=== PATIENT | male | born 1930 | race Caucasian/White ===

== ENCOUNTER 2016-11-01 19:49 | Inpatient (IN) | payer BC, OTHER ==
[~2016-11-01] VITALS: Ht 177.8 cm; Wt 67.4 kg
[~2016-11-01 19:49] MED LIST changes: -LUTE10TA PO
[2016-11-01 22:35] LABS: HEMATOCRIT 25.7 % (42-52); MEAN CELL VOLUME 84.8 fL (80-100); MEAN CORPUSCULAR HEMOGLOBIN 28.1 pg (25-34); MEAN CORPUSCULAR HGB CONC 33.1 g/dl (32-36); MEAN PLATELET VOLUME 9.3 fL (7.4-10.4); PLATELET COUNT 337 K/uL (130-400); RED BLOOD COUNT 3.03 M/uL (4.7-6.1); WHITE BLOOD COUNT 8.36 K/uL (4.8-10.8)
[2016-11-01 22:45] LABS: INR 1.2 (0.9-1.1); PARTIAL THROMBOPLASTIN RATIO 1.3; PROTHROMBIN TIME (PATIENT) 13.2 SECONDS (9.0-12.0)
[2016-11-01 22:51] LABS: ALT/SGPT 13 U/L (12-78); BLOOD UREA NITROGEN 21 mg/dl (7-18); BUN/CREATININE RATIO 17.5 (10-20); CALCIUM 9.4 mg/dl (8.5-10.1); CARBON DIOXIDE 28 mmol/L (21-32); CHLORIDE 102 mmol/L (98-107); GLUCOSE 106 mg/dl (70-99); MAGNESIUM 2.3 mg/dl (1.8-2.4); POTASSIUM 4.1 mmol/L (3.5-5.1); SODIUM 137 mmol/L (136-145)
[2016-11-01] MEDS ORDERED: LUTE10TA PO (22:54)
[2016-11-01 23:02] LABS: ALB/GLOB RATIO 0.4 (0.9-2); ALKALINE PHOSPHATASE 56 U/L (45-117); AST/SGOT 15 U/L (15-37); CKMB/CK RATIO 7.8 (0-3.0)
[2016-11-01 23:14] LABS: URINE APPEARANCE CLEAR (CLEAR); URINE BILIRUBIN NEG (NEG); URINE COLOR YELLOW; URINE NITRITE NEG (NEG); URINE SPECIFIC GRAVITY 1.022 (1.000-1.030); UROBILINOGEN NEG (NEG); ZZUR CULT IF INDIC CLEAN CATCH NO
[2016-11-01 23:20] LABS: BASO ABS # 0.15 K/uL (0-0.2); BASOPHIL % 1.8 % (0-2); COMPLETE YES; EOSINOPHIL % 1.8 %; LYMPH ABS # 3.44 K/uL (1.2-3.4); LYMPHOCYTE % 41.2 %; META ABS # 0.15 K/uL (0-0); METAMYELOCYTE % 1.8 %
[2016-11-01 23:23] LABS: MANUAL MICROSCOPIC REQUIRED? NO; REVIEW REQ? NO
--- NOTE | 2016-11-02 01:06 | EMERGENCY ROOM VISIT NOTE ---
ED Visit Note First contact with patient: 22:10 Patient was seen by our PA/CAN TESTER. I was involved in the patient's care and did evaluate the patient myself. I was involved in the care throughout the ER stay. The patient presents with fatigue, he is anemic. I suspect his counts will drop further with hydration. Given his findings, admission/observation is warranted.
[2016-11-02] MEDS ORDERED: SODIUM CHLORIDE 0.9% 500ML 500 ML IV STA (01:19)
[2016-11-02] MEDS ORDERED: OPTIRAY 320 IV PRN (01:30)
[2016-11-02] MEDS ORDERED: ONDANSETRON INJ 2 MG/ML 2 ML VIAL IV PRN (01:45)
[2016-11-02] MEDS ORDERED: ZOLPIDEM TARTRATE 5 MG TAB PO PRN (01:45)
[2016-11-02] MEDS ORDERED: MAGNESIUM HYDROXIDE SUSP 30 ML UDC PO PRN (01:45)
[2016-11-02] MEDS ORDERED: POLYETHYLENE (MIRALAX) 17 GM PACK PO PRN (01:45)
[2016-11-02] MEDS ORDERED: ACETAMINOPHEN 325 MG TAB PO PRN (01:45)
[2016-11-02 02:12] VITALS: O2SAT 98
[2016-11-02 02:40] VITALS: BP 126/65; PULSE 62; TEMP 36.9; O2SAT 93
[2016-11-02 02:50] VITALS: Ht 177.8 cm; Wt 67.4 kg
[2016-11-02] MEDS: NSS + 20MEQ KCL 1000ML 1,000 ML IV SCH ×3 (04:06→23:24)
--- NOTE | 2016-11-02 06:39 | History and Physical ---
History & Physical Date & Time of Service: Nov 02, 2016 at 06:31 Chief Complaint: Recent Unexplained Wt Loss, Symptomatic Anemia Primary Care Physician: Yahir Watts D.O.Int.Med. History of Present Illness Source: patient The patient is an 85-year-old male who presents to the emergency department with complaint of persistent weakness, fatigue, increased need for sleep and a 10 pound weight loss over the past month. He has known history of prostate cancer and is status post prostatectomy. He has not had any recent travel or sick exposures. His reports that he has had a decreased appetite over the past month. Social History Smoking Status: Unknown if Ever Smoked Smokeless Tobacco Use: No Alcohol Use: none Drug Use: none Marital Status: Housing status: lives with family Occupational Status: retired Immunizations History of Tetanus Vaccine?: No History of Pneumococcal: No History of Hepatitis B Vaccine: No Multi-Drug Resistant Organisms History of MDRO: No Allergies Coded Allergies: Nut Tree (Verified Allergy, Mild, "DIDN'T FEEL WELL", 11/01/16) Sulfa Antibiotics (Verified Allergy, Mild, "DIDN'T FEEL WELL", 11/01/16) Home Medications Scheduled Lutein (Lutein), 1 DOSE PO DAILY Review of Systems The patient denies chest pain, palpitations, shortness of breath, cough, lower extremity swelling, vision change, hearing change, sore throat, fevers, chills, sweats, nausea, vomiting, abdominal pain, pelvic pain, blood in urine or stool, dysuria, urinary frequency or urgency, headache, memory loss, rash, abnormal bruising or bleeding, imbalance, focal weakness, numbness or tingling in arms or legs, arthralgias or myalgias, back or neck pain, night sweats, or allergy symptoms. The review of systems is otherwise negative other than for that already noted above, and at least 10 systems have been reviewed. Physical Exam Vital Signs Date Time Temp Pulse Resp B/P Pulse Ox O2 Delivery O2 Flow Rate FiO2 11/02/16 02:50 Room Air 11/02/16 02:50 Room Air 11/02/16 02:40 36.9 62 17 126/65 93 Room Air 11/02/16 02:12 78 18 135/63 98 11/02/16 01:47 78 18 135/63 98 Room Air 11/02/16 00:39 80 24 111/52 96 Room Air 11/01/16 23:03 77 19 125/60 97 Room Air 11/01/16 22:58 81 11/01/16 22:51 77 134/63 81 133/61 80 141/60 11/01/16 22:49 95 Room Air 11/01/16 20:01 37.2 95 18 134/68 96 Room Air The patient is awake, well-developed and adequately nourished, alert and oriented 3, normocephalic and atraumatic, lying in bed and in no acute distress. HEENT--PERRL, EOMI, mucous membranes and oropharynx dry. Neck--supple, no JVD or bruits, thyroid normal, trachea midline, no adenopathy. Heart--normal S1 and S2, no extra beats, no murmurs, rubs or gallops. Lungs--clear bilaterally with good air movement, no respiratory distress, no accessory muscle use. Abdomen--normal bowel sounds and soft, nontender and nondistended, no hernias or masses, no organomegaly. Extremities--no cyanosis, clubbing or edema. There are good distal pulses b/l. Dermatologic--normal skin turgor, normal color, warm and dry, no abnormal lymph nodes, no rash. Neurologic--cranial nerves II through XII grossly intact, motor and sensory examination normal. Rheumatologic--normal range of motion, nontender, muscles and joints. Psychiatric--normal affect. Diagnostics Laboratory Results Results Past 24 Hours Test 11/01/16 22:11 11/01/16 22:44 11/01/16 22:55 Range/Units White Blood Count 8.36 4.8-10.8 K/uL Red Blood Count 3.03 4.7-6.1 M/uL Hemoglobin 8.5 14.0-18.0 g/dL Hematocrit 25.7 42-52 % Mean Corpuscular Volume 84.8 80-100 fL Mean Corpuscular Hemoglobin 28.1 25-34 pg Mean Corpuscular Hemoglobin Concent 33.1 32-36 g/dl Platelet Count 337 130-400 K/uL Mean Platelet Volume 9.3 7.4-10.4 fL RDW Standard Deviation 50.0 36.4-46.3 fL RDW Coefficient of Variation 16.2 11.5-14.5 % Neutrophils % (Manual) 42.0 % Lymphocytes % (Manual) 41.2 % Monocytes % (Manual) 11.4 % Eosinophils % (Manual) 1.8 % Basophils % (Manual) 1.8 0-2 % Metamyelocytes % 1.8 % Neutrophils # (Manual) 3.51 1.4-6.5 K/uL Total Absolute Neutrophils 3.51 1.4-6.5 K/uL Lymphocytes # (Manual) 3.44 1.2-3.4 K/uL Total Absolute Lymphocytes 3.44 1.2-3.4 K/uL Monocytes # (Manual) 0.95 0.11-0.59 K/uL Eosinophils # (Manual) 0.15 0-0.5 K/uL Basophils # (Manual) 0.15 0-0.2 K/uL Metamyelocytes # 0.15 0-0 K/uL Red Blood Cell Morphology Unremarkable Prothrombin Time 13.2 9.0-12.0 SECONDS Prothromb Time International Ratio 1.2 0.9-1.1 Activated Partial Thromboplast Time 33.4 21.0-31.0 SECONDS Partial Thromboplastin Ratio 1.3 Sodium Level 137 136-145 mmol/L Potassium Level 4.1 3.5-5.1 mmol/L Chloride Level 102 98-107 mmol/L Carbon Dioxide Level 28 21-32 mmol/L Anion Gap 7.0 3-11 mmol/L Blood Urea Nitrogen 21 7-18 mg/dl Creatinine 1.20 0.60-1.40 mg/dl Est Creatinine Clear Calc Drug Dose 44.7 ml/min Estimated GFR () 64.0 Estimated GFR (Non- 55.2 BUN/Creatinine Ratio 17.5 10-20 Random Glucose 106 70-99 mg/dl Calcium Level 9.4 8.5-10.1 mg/dl Magnesium Level 2.3 1.8-2.4 mg/dl Total Bilirubin 0.6 0.2-1 mg/dl Aspartate Amino Transf (AST/SGOT) 15 15-37 U/L Alanine Aminotransferase (ALT/SGPT) 13 12-78 U/L Alkaline Phosphatase 56 45-117 U/L Total Creatine Kinase 18 39-308 U/L Creatine Kinase MB 1.4 0.5-3.6 ng/ml Creatine Kinase MB Ratio 7.8 0-3.0 Troponin I < 0.015 0-0.045 ng/ml Total Protein 9.3 6.4-8.2 gm/dl Albumin 2.6 3.4-5.0 gm/dl Globulin 6.7 2.5-4.0 gm/dl Albumin/Globulin Ratio 0.4 0.9-2 Lipase 181 73-393 U/L Thyroid Stimulating Hormone (TSH) 5.060 0.300-4.500 uIu/ml Bedside Lactic Acid Venous 0.84 0.90-1.70 mmol/L Urine Color YELLOW Urine Appearance CLEAR CLEAR Urine pH 7.0 4.5-7.5 Urine Specific [place] 1.022 1.000-1.030 Urine Protein 2+ NEG Urine Glucose (UA) NEG NEG Urine Ketones NEG NEG Urine Occult Blood NEG NEG Urine Nitrite NEG NEG Urine Bilirubin NEG NEG Urine Urobilinogen NEG NEG Urine Leukocyte Esterase NEG NEG Urine WBC (Auto) 1-5 0-5 /hpf Urine RBC (Auto) 0-4 0-4 /hpf Urine Hyaline Casts (Auto) 1-5 0-5 /lpf Urine Epithelial Cells (Auto) 10-20 0-5 /lpf Urine Bacteria (Auto) NEG NEG Impression Assessment and Plan Generalized fatigue/ weakness/10 pound weight loss/anemia/lymphocytosis--the patient had a CT of the chest and abdomen pelvis, with borderline mediastinal lymph nodes and retroperitoneal lymph nodes. He has a known history of prostate cancer. We'll send off a peripheral smear for pathology review. We' ll consult his digital account coordinator. There are no bone lesions suggestive of metastatic prostate cancer. Would be concerned about the possibility of lymphoma. CAD/status post CABG/status post AVR--on no medications at this time. We will order an echocardiogram, and included in differential would be SBE. Anemia--Hemoccult test stools, check a reticulocyte count and other appropriate labs. If there is blood in stool, will need a GI consult. Level of Care Med/Surg Advanced Directives Existing Advance Directive: No Existing Living Will: Yes Existing Power of Cook Pickled Meat: Yes Resuscitation Status FULL RESUSCITATION VTE Prophylaxis VTE Risk Assessment Done? Y/N: Yes Risk Level: Low Given or contraindicated: SCD's
--- NOTE | 2016-11-02 07:13 | DIAGNOSTIC IMAGING REPORT ---
ULTRASOUND BILATERAL LOWER EXTREMITY VENOUS CLINICAL HISTORY: Bilateral leg pain and swelling. COMPARISON STUDY: No priors. TECHNIQUE: Real-time, grayscale, and color Doppler sonography of the deep veins of the right and left lower extremity was performed from the inguinal crease to the calf. Compression and augmentation were utilized. FINDINGS: There is no sonographic evidence of deep venous thrombosis identified in the right or left lower extremity. The common femoral, superficial femoral, and popliteal veins are patent and normally compressible bilaterally. The greater saphenous vein and the profunda femoris vein at the junction with the common femoral vein are clear in both legs. The visualized calf veins are patent bilaterally. Prominent inguinal lymph nodes are incidentally noted and likely reactive. IMPRESSION: There is no sonographic evidence of deep venous thrombosis identified in the right or left lower extremity. Electronically signed by: Aly Kim M.D. 11/02/2016 7:12 AM Dictated Date/Time: 11/02/2016 7:11 AM
[2016-11-02 07:14] VITALS: BP 127/56; PULSE 67; TEMP 36.7; O2SAT 98
--- NOTE | 2016-11-02 08:02 | DIAGNOSTIC IMAGING REPORT ---
CT ABD/PELVIS IV CONTRAST ONLY CLINICAL HISTORY: Anemia. Possible abdominal mass. COMPARISON STUDY: None. TECHNIQUE: Following the IV administration of 90 mL of Optiray-320, CT scan of the abdomen and pelvis was performed from the lung bases to the proximal femurs. Images are reviewed in the axial, sagittal, and coronal planes. IV contrast was administered without complication. CT DOSE: FINDINGS: Lower chest: There are bibasal atelectatic changes. Liver: There are 2 subcentimeter hepatic hypodensities, likely representing small cysts or biliary hamartomas. Gallbladder: Unremarkable. Spleen: Normal in size and attenuation. Pancreas: Unremarkable. Adrenal glands: Unremarkable. Kidneys: There is symmetric renal cortical enhancement. The kidneys are normal in size without hydronephrosis. Bowel: There are no transition zones to indicate bowel obstruction. There is colonic diverticulosis. There are no acute peridiverticular inflammatory changes. There are no findings to indicate acute appendicitis. Peritoneum: There is no intraperitoneal free air or abdominal ascites. There are fat-containing inguinal hernias. Vasculature: The abdominal aorta is normal in course and caliber. Adenopathy: There are borderline enlarged retroperitoneal para-aortic, and iliac lymph nodes. Pelvic viscera: The patient appears be status post a prostatectomy with lymph node dissection. Skeletal structures: No destructive osseous lesions are seen. IMPRESSION: 1. No evidence of bowel obstruction. No evidence of free air 2. No evidence of acute diverticulitis. No evidence of acute appendicitis. 3. Borderline enlarged retroperitoneal lymph nodes. Electronically signed by: Zan Padilla M.D. 11/02/2016 8:01 AM Dictated Date/Time: 11/02/2016 7:42 AM
--- NOTE | 2016-11-02 08:05 | DIAGNOSTIC IMAGING REPORT ---
CT SCAN OF THE CHEST WITH IV CONTRAST CLINICAL HISTORY: Anemia. COMPARISON STUDY: Chest x-ray dated 11/01/2016. TECHNIQUE: Following the IV administration of 90 cc of Optiray 320, CT scan of the thorax was performed from the thoracic inlet to the upper abdomen. Images are reviewed in the axial, sagittal, and coronal planes. IV contrast was administered without complication. CT DOSE: 479.98 mGy.cm FINDINGS: Thyroid: Imaged portions of the thyroid gland are normal in size and attenuation. Thoracic aorta: There is atherosclerotic calcification of the thoracic aorta, which is normal in caliber and demonstrates standard 3-vessel arch anatomy. No dissection is seen. Pulmonary vasculature: The pulmonary trunk is normal in caliber. There are no filling defects identified in the central pulmonary vessels to indicate pulmonary embolus. Note that this examination was not protocoled for evaluation of the pulmonary arteries. Heart: The patient is status post midline sternotomy and there is evidence of aortic valve surgery. The coronary arteries are densely calcified. The heart is mildly enlarged and configuration, and without pericardial effusion. The pulmonary trunk is normal in caliber. Lungs and pleural spaces: Evaluation of the lung parenchyma is modestly degraded by motion artifact. There is no airspace consolidation or pleural effusion. Dependent atelectasis is observed. Scattered calcified granulomas are identified. There is mild apical scarring. No concerning pulmonary lesion is seen. The trachea and central airways are clear. Mediastinum: There are scattered subcentimeter mediastinal lymph nodes. These are not pathologically enlarged by size criteria. Darcie: Clear. Axillae: There is no axillary lymphadenopathy. Upper abdomen: There is a small hiatal hernia. Images renal parenchyma demonstrates cortical atrophy. See report of abdominal CT performed concurrently for detailed intra-abdominal findings. Skeletal structures: The skeletal structures are osteopenic. Degenerative change and hyperkyphosis are noted in the thoracic spine. No lytic or blastic bony lesions are seen. IMPRESSION: 1. There is no airspace consolidation or pleural effusion. 2. Mild cardiac enlargement with evidence of previous aortic valve surgery. Electronically signed by: Aly Kim M.D. 11/02/2016 8:04 AM Dictated Date/Time: 11/02/2016 7:57 AM
[2016-11-02 08:16] LABS: FERRITIN 200.6 ng/ml (8.0-388.0)
--- NOTE | 2016-11-02 13:56 | ECHOCARDIOGRAM REPORT ---
*NOTICE TO RECEIVING LIBERTARIAN AGENCY This information is strictly Confidential and protected under [place] law. [place] law prohibits you from making any further disclosure of this information unless further disclosure is expressly permitted by the written consent of the person to whom it pertains or is authorized by law. A general authorization for the release of medical or other information is not sufficient for this purpose. Hospital accepts no responsibility if the information is made available to any other person, INCLUDING THE PATIENT. Interpretation Summary * Name: TATI BARRIENTOS Study Date: 11/02/2016 11:22 AM BP: 127/56 mmHg * Patient Location: [facility]\S\[id number]\1 HR: 85 * : 1930 (M/d/yyyy) Gender: Male Height: 70 in * Age: 85 yrs Ethnicity: [place] Weight: 148 lb * Ordering Physician: Avel Cabrera * Referring Physician: Yahir Watts D.O.Int.Med. * Performed By: Lenka Perez RCS * * Reason For Study: WEIGHT LOSS / ? SBE / AVR * BSA: 1.8 m2 * -- Conclusions -- * The basal septum is thickened and angulated consistent with sigmoid septum. * There is moderate asymmetric left ventricular hypertrophy. * Left ventricular systolic function is normal. * There is a bioprosthetic aortic valve. * The gradient is normal for this prosthetic aortic valve. * There is no aortic valvular vegetation. * Right ventricular systolic pressure is elevated at 30-40mmHg. * Moderate aortic root dilatation. * Grade I diastolic dysfunction, (abnormal relaxation pattern). Procedure Details * A complete two-dimensional transthoracic echocardiogram was performed (2D, M-mode, Doppler and color flow Doppler). Left Ventricle * The left ventricle is normal in size. * The basal septum is thickened and angulated consistent with sigmoid septum. * There is moderate asymmetric left ventricular hypertrophy. * Ejection Fraction = 55-60%. * Left ventricular systolic function is normal. * Grade I diastolic dysfunction, (abnormal relaxation pattern). * Septal motion is consistent with conduction abnormality. Right Ventricle * The right ventricle is normal in size and function. Atria * The left atrial size is normal. * Right atrial size is normal. Mitral Valve * The mitral valve is grossly normal. * Significant mitral regurgitation is absent. Tricuspid Valve * The tricuspid valve anatomy is normal. * There is trace tricuspid regurgitation. * Right ventricular systolic pressure is elevated at 30-40mmHg. Aortic Valve * There is no aortic valvular vegetation. * There is a bioprosthetic aortic valve. * The gradient is normal for this prosthetic aortic valve. Great Vessels * Moderate aortic root dilatation. Pericardium/Pleural * There is no pericardial effusion. MMode 2D Measurements and Calculations IVSd 1.8 cm IVSs 2.3 cm LVIDd 4.3 cm LVIDs 3.0 cm LVPWd 1.7 cm LVPWs 2.0 cm IVS/LVPW 1.1 FS 29.3 % EDV(Teich) 81.4 ml ESV(Teich) 35.4 ml EF(Teich) 56.5 % EDV(cubed) 77.5 ml ESV(cubed) 27.4 ml EF(cubed) 64.7 % % IVS thick 23.6 % % LVPW thick 18.3 % LV mass(C)d 324.6 grams LV mass(C)dI 176.7 grams/m\S\2 LV mass(C)s 294.1 grams LV mass(C)sI 160.1 grams/m\S\2 SV(Teich) 46.0 ml SI(Teich) 25.1 ml/m\S\2 SV(cubed) 50.1 ml SI(cubed) 27.3 ml/m\S\2 Ao root diam 4.5 cm Ao root area 16.0 cm\S\2 LA dimension 3.6 cm LA/Ao 0.79 LVOT diam 2.0 cm LVOT area 3.2 cm\S\2 LVAd ap4 34.8 cm\S\2 LVLd ap4 8.3 cm EDV(MOD-sp4) 120.9 ml EDV(sp4-el) 124.3 ml LVAs ap4 21.0 cm\S\2 LVLs ap4 7.1 cm ESV(MOD-sp4) 54.6 ml ESV(sp4-el) 52.3 ml EF(MOD-sp4) 54.8 % EF(sp4-el) 57.9 % LVAd ap2 39.8 cm\S\2 LVLd ap2 8.7 cm EDV(MOD-sp2) 152.1 ml EDV(sp2-el) 154.2 ml LVAs ap2 24.0 cm\S\2 LVLs ap2 7.5 cm ESV(MOD-sp2) 62.7 ml ESV(sp2-el) 65.0 ml EF(MOD-sp2) 58.8 % EF(sp2-el) 57.8 % LVLd %diff 4.8 % EDV(MOD-bp) 137.9 ml LVLs %diff 5.1 % ESV(MOD-bp) 58.7 ml EF(MOD-bp) 57.4 % SV(MOD-sp4) 66.2 ml SI(MOD-sp4) 36.1 ml/m\S\2 SV(MOD-sp2) 89.4 ml SI(MOD-sp2) 48.7 ml/m\S\2 SV(MOD-bp) 79.1 ml SI(MOD-bp) 43.1 ml/m\S\2 SV(sp4-el) 72.0 ml SI(sp4-el) 39.2 ml/m\S\2 SV(sp2-el) 89.2 ml SI(sp2-el) 48.6 ml/m\S\2 Doppler Measurements and Calculations MV E max mae 118.6 cm/sec MV A max mae 153.7 cm/sec MV E/A 0.77 MV P1/2t max mae 130.7 cm/sec MV P1/2t 62.4 msec MVA(P1/2t) 3.5 cm\S\2 MV dec slope 613.5 cm/sec\S\2 MV dec time 0.19 sec Ao V2 max 214.2 cm/sec Ao max PG 18.4 mmHg Ao max PG (full) 14.8 mmHg PINO(V,A) 1.4 cm\S\2 PINO(V,D) 1.4 cm\S\2 LV V1 max PG 3.6 mmHg LV V1 max 94.4 cm/sec MR max mae 566.2 cm/sec MR max PG 128.2 mmHg PA V2 max 94.2 cm/sec PA max PG 3.5 mmHg TR max mae 298.2 cm/sec
[2016-11-02 15:33] VITALS: BP 136/61; PULSE 78; TEMP 37.1; O2SAT 96
[2016-11-02 23:18] VITALS: BP 116/56; PULSE 71; TEMP 37.2; O2SAT 98
[2016-11-03 06:53] LABS: HEMATOCRIT 29.4 % (42-52); MEAN CELL VOLUME 87.8 fL (80-100); MEAN CORPUSCULAR HEMOGLOBIN 28.7 pg (25-34); MEAN CORPUSCULAR HGB CONC 32.7 g/dl (32-36); MEAN PLATELET VOLUME 9.9 fL (7.4-10.4); PLATELET COUNT 363 K/uL (130-400); RED BLOOD COUNT 3.35 M/uL (4.7-6.1); WHITE BLOOD COUNT 9.88 K/uL (4.8-10.8)
[2016-11-03 06:58] VITALS: BP 119/49; PULSE 65; TEMP 36.6; O2SAT 98
[2016-11-03 07:29] LABS: BUN/CREATININE RATIO 11.5 (10-20); CREATININE 1.3 mg/dl (0.60-1.40); MAGNESIUM 2.4 mg/dl (1.8-2.4); POTASSIUM 3.9 mmol/L (3.5-5.1)
[2016-11-03 07:53] LABS: BASO % 0.7 %; BASO ABS # 0.07 K/uL (0-0.2); COMPLETE YES; EOS % 1.7 %; LYMPH % 53.3 %; LYMPH ABS # 5.27 K/uL (1.2-3.4); MONO % 18.8 %; NEUT % 23.5 %
[2016-11-03] MEDS: NSS + 20MEQ KCL 1000ML 1,000 ML IV SCH (09:12)
[2016-11-03 14:49] VITALS: BP 122/57; PULSE 74; TEMP 36.7; O2SAT 93
--- NOTE | 2016-11-09 12:34 | EMERGENCY ROOM VISIT NOTE ---
History First contact with patient: 22:10 Chief Complaint: ABNORMAL LABS Stated Complaint: RECENT UNEXPLAINED WT LOSS, SYMPTOMATIC ANEMIA History of Present Illness The patient is a 85 year old male who presents to the Emergency Department by private vehicle for evaluation and work condition is primary care provider for abnormal labs. The patient reports that he had blood testing performed this afternoon for ongoing cramps in the bilateral legs as well as generalized fatigue and malaise. He reports that over the last few months he has had increasing fatigue. He reports that he sleeps much more than he had previously. In addition, there is been a moderate weight loss. There is been decreased by mouth intake as well. The patient reports night sweats to the point of changing his pajamas 2-3 times per night. He started with cramping in his legs over the last several days which prompted evaluation of his primary care provider's office. He had labs performed which were consistent with anemia as well as an elevation of his d-dimer and concerns for DVT. The patient does report a history of aortic valve replacement with porcine valve. He is on no daily medications at this time. The patient denies any headaches, dizziness, chest pain, palpitations, short of breath, cough, fevers, chills, nausea, vomiting, hematochezia, melena, hematuria, or dysuria. Review of Systems A complete 10-point Review of Systems was discussed with the patient, with pertinent positives and negatives listed in the History of Present Illness. All remaining Review of Systems questions can be considered negative unless otherwise specified. Past Medical/Surgical History Medical Problems: (1) Recent unexplained weight loss (2) Symptomatic anemia Social History Smoking Status: Unknown if Ever Smoked Smokeless Tobacco Use: No Alcohol Use: none Drug Use: none Marital Status: Housing Status: lives with significant other Occupation Status: retired Current/Historical Medications Scheduled Lutein (Lutein), 1 DOSE PO DAILY Allergies Coded Allergies: Nut Tree (Verified Allergy, Mild, "DIDN'T FEEL WELL", 11/01/16) Sulfa Antibiotics (Verified Allergy, Mild, "DIDN'T FEEL WELL", 11/01/16) Physical Exam Vital Signs Date Time Temp Pulse Resp B/P Pulse Ox O2 Delivery O2 Flow Rate FiO2 11/02/16 00:39 80 24 111/52 96 Room Air 11/01/16 23:03 77 19 125/60 97 Room Air 11/01/16 22:58 81 11/01/16 22:51 77 134/63 81 133/61 80 141/60 11/01/16 22:49 95 Room Air 11/01/16 20:01 37.2 95 18 134/68 96 Room Air Pain Rating (0-10): 0 Physical Exam VITAL SIGNS - Vital signs and nursing notes were reviewed. GENERAL - 85-year-old male appearing his stated age who is in no acute distress. Communicates well with provider and answers questions appropriately. SKIN - Without rashes. HEAD - NC/AT. EYES - PERRL with EOMI bilaterally. Sclera anicteric. Palpebral conjunctiva pink and moist with no injection noted. EARS - No deformities of external structures noted on gross examination bilaterally. No pain elicited with palpation of the tragus bilaterally. External auditory canals without discharge or otorrhea. Tympanic membranes pearly berrios without retraction or bulging. No fluid or purulent material visualized behind the TM. Handle of malleus, umbo, cone of light, pars tensa/ flaccid all easily visualized. NOSE - Midline and without cyanosis. No epistaxis or purulent drainage noted. Septum midline without deviation or septal hematoma noted. MOUTH/OROPHARYNX - Without perioral cyanosis. Buccal mucosa pink and moist and without leukoplakia. Tongue midline with equal elevation of palate bilaterally. No tonsillar hypertrophy, erythema, or exudates noted. NECK - Neck with FROM. Supple to palpation. No lymphadenopathy noted. No nuchal rigidity. LUNGS - Chest wall symmetric without accessory muscle use, intercostals retractions, or central cyanosis. Normal vesicular breath sounds CTA B/L. No wheezes, rales, or rhonchi appreciated. CARDIAC - RRR with S1/S2. No murmur, rubs, or gallops appreciated. ABDOMEN - Abdominal contour flat without pulsations or visible masses. BS normoactive all four quadrants. No tenderness, palpable masses, hepatosplenomegaly, or ascites noted. RECTAL - no rectal fissures. No skin tags appreciated. No active bleeding. A sterile, water-soluble lubricant was applied to the examiner's finger prior to internal exam. No rectal vault tenderness. No rectal masses. No fecal impaction. Stool Guaiac Test: Hemoccult NEGATIVE. EXTREMITIES - No clubbing or peripheral cyanosis. No pretibial edema present. +3 /5 radial and dorsalis pedis pulses palpated throughout. +5/5 strength noted in UE/LE bilaterally. NEUROLOGIC - Cranial nerves II through XII grossly intact. Sensory intact to light touch throughout. Patellar reflexes +2/4. PSYCH - A&Ox3 and cooperates fully with examiner. Pt is very pleasant and interacts well with examiner. Medical Decision & Procedures ER Provider Diagnostic Interpretation: Radiological imaging and reports were reviewed by myself. Radiologist's Interpretation as follows: ULTRASOUND BILATERAL LOWER EXTREMITY VENOUS CLINICAL HISTORY: Bilateral leg pain and swelling. COMPARISON STUDY: No priors. TECHNIQUE: Real-time, grayscale, and color Doppler sonography of the deep veins of the right and left lower extremity was performed from the inguinal crease to the calf. Compression and augmentation were utilized. FINDINGS: There is no sonographic evidence of deep venous thrombosis identified in the right or left lower extremity. The common femoral, superficial femoral, and popliteal veins are patent and normally compressible bilaterally. The greater saphenous vein and the profunda femoris vein at the junction with the common femoral vein are clear in both legs. The visualized calf veins are patent bilaterally. Prominent inguinal lymph nodes are incidentally noted and likely reactive. IMPRESSION: There is no sonographic evidence of deep venous thrombosis identified in the right or left lower extremity. Laboratory Results Test 11/01/16 22:11 11/01/16 22:44 11/01/16 22:55 Neutrophils % (Manual) 42.0 % Lymphocytes % (Manual) 41.2 % Monocytes % (Manual) 11.4 % Eosinophils % (Manual) 1.8 % Basophils % (Manual) 1.8 % (0-2) Metamyelocytes % 1.8 % Neutrophils # (Manual) 3.51 K/uL (1.4-6.5) Total Absolute Neutrophils 3.51 K/uL (1.4-6.5) Lymphocytes # (Manual) 3.44 K/uL (1.2-3.4) Total Absolute Lymphocytes 3.44 K/uL (1.2-3.4) Monocytes # (Manual) 0.95 K/uL (0.11-0.59) Eosinophils # (Manual) 0.15 K/uL (0-0.5) Basophils # (Manual) 0.15 K/uL (0-0.2) Metamyelocytes # 0.15 K/uL (0-0) Red Blood Cell Morphology Unremarkable Prothrombin Time 13.2 SECONDS (9.0-12.0) Prothromb Time International Ratio 1.2 (0.9-1.1) Activated Partial Thromboplast Time 33.4 SECONDS (21.0-31.0) Partial Thromboplastin Ratio 1.3 Total Bilirubin 0.6 mg/dl (0.2-1) Aspartate Amino Transf (AST/SGOT) 15 U/L (15-37) Alanine Aminotransferase (ALT/SGPT) 13 U/L (12-78) Alkaline Phosphatase 56 U/L (45-117) Total Creatine Kinase 18 U/L (39-308) Creatine Kinase MB 1.4 ng/ml (0.5-3.6) Creatine Kinase MB Ratio 7.8 (0-3.0) Troponin I < 0.015 ng/ml (0-0.045) Total Protein 9.3 gm/dl (6.4-8.2) Albumin 2.6 gm/dl (3.4-5.0) Globulin 6.7 gm/dl (2.5-4.0) Albumin/Globulin Ratio 0.4 (0.9-2) Lipase 181 U/L (73-393) Thyroid Stimulating Hormone (TSH) 5.060 uIu/ml (0.300-4.500) Bedside Lactic Acid Venous 0.84 mmol/L (0.90-1.70) Urine Color YELLOW Urine Appearance CLEAR (CLEAR) Urine pH 7.0 (4.5-7.5) Urine Specific [place] 1.022 (1.000-1.030) Urine Protein 2+ (NEG) Urine Glucose (UA) NEG (NEG) Urine Ketones NEG (NEG) Urine Occult Blood NEG (NEG) Urine Nitrite NEG (NEG) Urine Bilirubin NEG (NEG) Urine Urobilinogen NEG (NEG) Urine Leukocyte Esterase NEG (NEG) Urine WBC (Auto) 1-5 /hpf (0-5) Urine RBC (Auto) 0-4 /hpf (0-4) Urine Hyaline Casts (Auto) 1-5 /lpf (0-5) Urine Epithelial Cells (Auto) 10-20 /lpf (0-5) Urine Bacteria (Auto) NEG (NEG) Medications Administered Medications (Trade) Dose Ordered Sig/Lopez Route Start Time Stop Time Status Last Admin Dose Admin Sodium Chloride (Nss 500ml) 500 ml @ 999 mls/hr Q31M STAT IV 11/02/16 01:19 11/02/16 01:49 DC 11/02/16 01:46 999 MLS/HR Procedure Patient was placed on the plant machinist and monitored throughout the entire extent of their stay. In addition, the patient's pulse oximetry was monitored throughout the entire stay. Any abnormalities or aberrancies were addressed appropriately. ECG Indication: weakness Rate (beats per minute): 76 Rhythm: normal sinus Findings: LBBB, no acute ischemic change Change: no significant change (from 07/26/2011.) ED Course Patient was seen and evaluated by myself. Outpatient labs were reviewed. Labs were drawn, saline lock in place. EKG was obtained. Ultrasound of the bilateral lower extremities was ordered. Laboratory results demonstrate no acute leukocytosis. The patient does have a moderate anemia with an H&H of 8.5 and 25.7. Patient has no significant electrolyte abnormalities. Cardiac enzymes are negative. Troponin was negative. INR was found to be elevated at 1.2. Ultrasound of bilateral lower extremities was unremarkable. The patient was hydrated with 500 mL normal saline bolus. Case was discussed with my attending physician who agrees with diagnostic approach and treatment plan. Case was reviewed with the [facility] hospitalist who agrees to admit the patient for further evaluation and management. CT of the chest and abdomen were ordered at his recommendation. Patient was admitted in stable condition. Medical Decision Given the patient's presentation and stated complaints, I did elect to perform the above-mentioned workup. The patient presents today with anemia as well as an elevated d-dimer. He has no fever. He has no melanotic stools. Stool was Hemoccult negative. She has no tenderness to palpation throughout. His exam is otherwise unremarkable. He does have a moderate anemia. My concern is for underlying neoplasm. He has no DVT today. I feel at this point it would be best for the patient to be admitted for continued management and evaluation of his ongoing symptoms. He was initially reluctant to this, however with conversation he did agree to admission. The patient was admitted in stable condition. In the evaluation and treatment of this patient, the following differential diagnoses were considered: Malignancy, DVT, GI bleed, amongst others. Impression Primary Impression: Symptomatic anemia Additional Impression: Recent unexplained weight loss Departure Information Dispostion Admitted as an inpatient Condition FAIR Referrals Watts, Yahir T., D.O.Int.Med. (PCP) Forms WORK / SCHOOL INSTRUCTIONS, HOME CARE DOCUMENTATION FORM, IMPORTANT VISIT INFORMATION Patient Instructions My [facility] Problem Qualifiers
--- NOTE | 2016-11-09 15:13 | Discharge Summary ---
Discharge Summary Date of Service Nov 09, 2016. Discharge Summary Admission Date: Nov 02, 2016 at 01:36 Discharge Date: Nov 03, 2016 Discharge Disposition: Home Principal Diagnosis: Weight loss Problems/Secondary Diagnoses: Prostate Cancer, Hx of CAD s/p CABG, Hx of bioprosthetic aortic valve replacement. Immunizations: History of Tetanus Vaccine?: No History of Pneumococcal: No History of Hepatitis B Vaccine: No Discharge Exam Physical Exam: General Appearance: WD/WN Eyes: normal inspection ENT: normal ENT inspection Neck: supple, no adenopathy, thyroid normal Respiratory/Chest: chest non-tender, lungs clear Cardiovascular: regular rate, rhythm, no edema, no gallop, no murmur Abdomen / GI: normal bowel sounds, non tender, soft Extremities: normal inspection, no calf tenderness Neurologic/Psychiatric: fourdrinier tender II-XII nml as tested, oriented x 3 Skin: normal color Hospital Course The patient is an 85-year-old male who presents to the emergency department with complaint of persistent weakness, fatigue, increased need for sleep and a 10 pound weight loss over the past month. He has known history of prostate cancer and is status post prostatectomy. He has not had any recent travel or sick exposures. His reports that he has had a decreased appetite over the past month. A/P Generalized fatigue/ weakness/10 pound weight loss/anemia/lymphocytosis--the patient had a CT of the chest and abdomen pelvis, with borderline mediastinal lymph nodes and retroperitoneal lymph nodes. He has a known history of prostate cancer. We'll send off a peripheral smear for pathology review. We' ll consult his program technician. There are no bone lesions suggestive of metastatic prostate cancer. Would be concerned about the possibility of lymphoma. Pt left AMA. CAD/status post CABG/status post AVR--on no medications at this time. echocardiogram was performed (result below) -- Conclusions -- The basal septum is thickened and angulated consistent with sigmoid septum. There is moderate asymmetric left ventricular hypertrophy. Left ventricular systolic function is normal. There is a bioprosthetic aortic valve. The gradient is normal for this prosthetic aortic valve. There is no aortic valvular vegetation. Right ventricular systolic pressure is elevated at 30-40mmHg. Moderate aortic root dilatation. Grade I diastolic dysfunction, (abnormal relaxation pattern).. Total Time Spent: Greater than 30 minutes This includes examination of the patient, discharge planning, medication reconciliation, and communication with other providers. Discharge Instructions Please refer to the electronic Patient Visit Report (Discharge Instructions) for additional information. Follow-Up Hematology in one to two weeks
[2017-06-22] MEDS ORDERED: OXYC-57 PO (09:37)
== END 2016-11-03 16:35 | disposition left against medical advice (07) | DRG 812 ==
LOC: ENRESERVTM → ENRESERVDT → C.EDB 19:50 → C.MSW 11-02 01:36
PROVIDERS: ADMIT Hospitalist; ATTEND Hospitalist
DX: D64.9 Anemia, unspecified (principal); R63.4 Abnormal weight loss; D72.820 Lymphocytosis (symptomatic); I25.10 Atherosclerotic heart disease of native coronary artery without angina pectoris; Z95.1 Presence of aortocoronary bypass graft; Z95.2 Presence of prosthetic heart valve; Z85.46 Personal history of malignant neoplasm of prostate; Z90.79 Acquired absence of other genital organ(s); Z88.2 Allergy status to sulfonamides; R25.2 Cramp and spasm; M79.89 Other specified soft tissue disorders; M79.604 Pain in right leg; M79.605 Pain in left leg; R60.0 Localized edema

== ENCOUNTER → 2016-11-01 | Outpatient (CLI) | payer BC ==
[~2016-11-01] MED LIST: CALC500C70 PO; LUTE10TA PO
--- NOTE | 2016-11-01 14:42 | DIAGNOSTIC IMAGING REPORT ---
TWO VIEW CHEST CLINICAL HISTORY: Fatigue. FINDINGS: PA and lateral chest radiographs are compared to study dated 04/16/2007. The patient is status post midline sternotomy and cardiac valve surgery. The heart is top normal in size and there is atherosclerotic calcification of the thoracic aorta. The pulmonary vasculature is noncongested. Chronic interstitial thickening is unchanged. No airspace consolidation or pleural effusion is seen. There is no pneumothorax. The skeletal structures are osteopenic. Mild degenerative change is noted throughout the thoracic spine. IMPRESSION: No active disease in the chest. Electronically signed by: Aly Kim M.D. 11/01/2016 2:41 PM Dictated Date/Time: 11/01/2016 2:33 PM
[2016-11-01 16:49] LABS: BASO % 0.6 %; BASO ABS # 0.05 K/uL (0-0.2); COMPLETE YES; EOS % 1.2 %; HEMATOCRIT 28.7 % (42-52); IG% 1.3 %; LYMPH % 41.5 %; LYMPH ABS # 3.46 K/uL (1.2-3.4); MEAN CELL VOLUME 87.2 fL (80-100); MEAN CORPUSCULAR HEMOGLOBIN 29.2 pg (25-34); MEAN CORPUSCULAR HGB CONC 33.4 g/dl (32-36); MEAN PLATELET VOLUME 10.1 fL (7.4-10.4); MONO % 21.2 %; NEUT % 34.2 %; PLATELET COUNT 378 K/uL (130-400); RED BLOOD COUNT 3.29 M/uL (4.7-6.1); WHITE BLOOD COUNT 8.34 K/uL (4.8-10.8)
[2016-11-01 16:56] LABS: ALT/SGPT 16 U/L (12-78); BLOOD UREA NITROGEN 22 mg/dl (7-18); CALCIUM 9.6 mg/dl (8.5-10.1); CARBON DIOXIDE 25 mmol/L (21-32); CHLORIDE 102 mmol/L (98-107); GLUCOSE 100 mg/dl (70-99); MAGNESIUM 2.3 mg/dl (1.8-2.4); SODIUM 136 mmol/L (136-145)
[2016-11-01 16:58] LABS: URINE APPEARANCE TURBID (CLEAR); URINE BILIRUBIN NEG (NEG); URINE COLOR DK YELLOW; URINE EPITHELIAL CELL AUTO >30 /lpf (0-5); URINE NITRITE NEG (NEG); URINE SPECIFIC GRAVITY 1.026 (1.000-1.030); UROBILINOGEN NEG (NEG)
[2016-11-01 17:00] LABS: MANUAL MICROSCOPIC REQUIRED? NO; REVIEW REQ? YES
[2016-11-01 17:07] LABS: ALB/GLOB RATIO 0.4 (0.9-2); ALKALINE PHOSPHATASE 63 U/L (45-117); AST/SGOT 18 U/L (15-37); PROSTATE SPECIFIC ANTIGEN < 0.010 ng/ml (0.000-4.000)
[2016-11-01 20:28] LABS: LYME DISEASE AB IGG NEG (NEG); LYME DISEASE AB IGM NEG (NEG)
== END | disposition home or self-care (01) ==
LOC: C.RADBC 14:04
PROVIDERS: ATTEND Family Medicine
DX: R53.83 Other fatigue (principal); C61 Malignant neoplasm of prostate; R25.2 Cramp and spasm; M79.89 Other specified soft tissue disorders

== ENCOUNTER → 2016-11-14 | Outpatient (CLI) | payer BC ==
[~2016-11-14] MED LIST changes: +ACYC-57 PO; -CALC500C70 PO; +LUTE10TA PO; +OXYC-57 PO; +PRED-301 PO
[2016-11-14 17:14] LABS: HEMATOCRIT 25.9 % (42-52); MEAN CELL VOLUME 85.5 fL (80-100); MEAN CORPUSCULAR HEMOGLOBIN 26.7 pg (25-34); MEAN CORPUSCULAR HGB CONC 31.3 g/dl (32-36); MEAN PLATELET VOLUME 9.8 fL (7.4-10.4); PLATELET COUNT 349 K/uL (130-400); RED BLOOD COUNT 3.03 M/uL (4.7-6.1)
[2016-11-14 17:46] LABS: ANISOCYTOSIS PRESENT; BASO ABS # 0.08 K/uL (0-0.2); BASOPHIL % 0.9 % (0-2); COMPLETE YES; EOSINOPHIL % 0.9 %; HYPOCHROMIA PRESENT; LYMPHOCYTE % 40.7 %; META ABS # 0.08 K/uL (0-0); METAMYELOCYTE % 0.9 %; NEUTROPHILS % 38.3 %
[2016-11-16 15:32] LABS: FREE KAPPA 452.2 MG/L (3.3-19.4); FREE KAPPA/LAMBDA RATIO 14.45 (0.26-1.65); FREE LAMBDA 31.3 MG/L (5.7-26.3)
[2016-11-17 10:19] LABS: ALBUMIN 2.9 G/DL (3.8-4.8); ALBUMIN % 2.63 %; ALPHA-2-GLOBULIN % 3.07 %; BETA GLOBULIN % 8.66 %; CREATININE UR 407 MG/DL (20-370); GAMMA GLOBULIN 3.9 G/DL (0.8-1.7); GAMMA GLOBULIN % 85.36 %; MONOCLONAL PROTEIN BAND 1 3.3 G/DL (NOT DETECTED); TOTAL PROTEIN 8.8 G/DL (6.2-8.3)
== END | disposition home or self-care (01) ==
LOC: C.LABBC 13:53
PROVIDERS: ATTEND Family Medicine
DX: D64.9 Anemia, unspecified (principal)

== ENCOUNTER → 2016-12-06 | Outpatient (CLI) | payer BC ==
--- NOTE | 2016-12-06 12:40 | DIAGNOSTIC IMAGING REPORT ---
PET/CT CLINICAL HISTORY: Lymphoma. TECHNIQUE: A PET/CT was performed from the skull base through the upper thighs following intravenous injection of 13.67 mCi of F 18 FDG IV. The injection was performed at 10:09 AM on December 06, 2016 and imaging began at 11:10 AM on December 06, 2016. Unenhanced CT was performed for attenuation correction purposes and anatomic localization. COMPARISON STUDY: CT of the chest, abdomen and pelvis November 02, 2016. FINDINGS: Head and neck: No abnormal FDG uptake is identified within the neck. There is no cervical lymphadenopathy. Chest: No pathologically enlarged thoracic lymph nodes are present. There are numerous small mediastinal, bilateral hilar and axillary lymph nodes. There is mild bilateral hilar FDG uptake. The SUV max of left hilum is 1.9. This could correspond to a nonenlarged lymph node. Prominent left axillary lymph nodes are not enlarged and have minimal FDG uptake. Mild dilatation of the ascending aorta, measuring 4.4 cm is noted. There is a prosthetic aortic valve and extensive coronary artery calcification. Abdomen and Pelvis: Borderline enlarged aortocaval lymph nodes have minimal FDG uptake. These nodes measure up to 9 mm in short axis diameter. Prominent but nonenlarged left external iliac lymph nodes have minimal FDG uptake. An index left external iliac lymph node shown on image 206 measures 1.9 x 0.9 cm and has an SUV max of 1.6. An index left inguinal lymph node shown on image 214 measures 1.4 x 0.9 cm and has an SUV max of 2.1. There is trace ascites. There are findings consistent with a prostatectomy and lymph node dissection. The spleen is not enlarged. Musculoskeletal: There is mild diffuse skeletal uptake with an SUV max of 2.8. No discrete lesions are identified. IMPRESSION: 1. No significant FDG avid lymphadenopathy. Minimal FDG uptake within borderline enlarged hilar, left external iliac and inguinal lymph nodes. 2. Mild diffuse skeletal FDG uptake with no discrete suspicious lesions identified. Electronically signed by: Tello Escoto M.D. 12/06/2016 12:32 PM Dictated Date/Time: 12/06/2016 12:18 PM
== END | disposition home or self-care (01) ==
LOC: C.PET 09:12
PROVIDERS: ATTEND Internal Medicine Hematology & Oncology
DX: C85.90 Non-Hodgkin lymphoma, unspecified, unspecified site (principal); D47.2 Monoclonal gammopathy; R63.4 Abnormal weight loss; D72.820 Lymphocytosis (symptomatic)

== ENCOUNTER 2017-06-22 05:45 | Day surgery (SDC) | payer BC ==
[~2017-06-22] VITALS: Ht 177.8 cm; Wt 64.0 kg
[~2017-06-22 05:45] MED LIST changes: -ACYC-57 PO; -OXYC-57 PO; -PRED-301 PO
[2017-06-22] MEDS ORDERED: CEFAZOLIN 1000MG IV PUSH 5 ML IV SCH (06:00)
[2017-06-22] MEDS ORDERED: SODIUM CHLORIDE 0.9% 1000ML IV SCH (06:00)
[2017-06-22 06:43] VITALS: BP 140/70; PULSE 98; TEMP 36.6; O2SAT 97; Ht 177.8 cm; Wt 64.0 kg
[2017-06-22] MEDS ORDERED: PRED-301 PO (06:43)
[2017-06-22] MEDS ORDERED: ACYC-57 PO (06:43)
[2017-06-22 07:27] VITALS: BP 140/70; PULSE 98; TEMP 36.6; O2SAT 97
[2017-06-22] MEDS ORDERED: FENTANYL CITRATE INJ 50 MCG/1 ML 2 ML VIAL ONE (07:31)
[2017-06-22] MEDS ORDERED: MIDAZOLAM HCL 1 MG/ML 2ML VIAL ONE (07:32)
[2017-06-22] MEDS ORDERED: LIDOCAINE HCL 1% 20 ML VIAL ONE (07:35)
[2017-06-22] MEDS ORDERED: BUPIVACAINE/EPINEPHRINE 0.5% MPF 1:200,000 30 ML VIAL ONE (07:45)
--- NOTE | 2017-06-22 08:35 | History and Physical ---
History & Physical Date Jun 22, 2017. (Gina Salazar PA-C) Chief Complaint nonhodgekins lymphoma (Gian Salazar PA-C) History of Present Illness The patient is a 86 year old male with hx of lymphoma which recently has become non hodgkins lymphoma, seen today for infusaport insertion for chemotherapy. Pt states he will need much more chemo and was recommended to undergo port insertion. Pt denies HOLLIDAY, fever, chills, chest pain, SOB, abd pain, N/V, rest pain, claudication, other complaints (Gina Salazar PA-C) Vitals Vital Signs Past 12 Hours Date Time Temp Pulse Resp B/P (MAP) Pulse Ox O2 Delivery O2 Flow Rate FiO2 06/22/17 07:27 36.6 98 20 140/70 97 Room Air 06/22/17 06:43 36.6 98 20 140/70 (93) 97 Room Air (Gina Salazar PA-C) Allergies Coded Allergies: Nut Tree (Verified Allergy, Mild, "DIDN'T FEEL WELL", 06/22/17) Sulfa Antibiotics (Verified Allergy, Mild, "DIDN'T FEEL WELL", 06/22/17) Home Medications Scheduled Acyclovir (Zovirax), 400 MG PO 5 TIMES DAILY Lutein (Lutein), 1 DOSE PO DAILY Prednisone (Prednisone), 10 MG PO DAILY Problem List Medical Problems: (1) Recent unexplained weight loss (2) Symptomatic anemia (Gina Salazar PA-C) Surgical / Medical History Hx Cardiac Surgery: Yes (CABD, Valve replacement) Hx Abdominal Surgery: Yes (hernia ) Hx Cancer Surgery: Yes (skin cancer removed) Hx Thoracic Surgery: No Hx Orthopedic: No Hx Urinary Tract Surgery: Yes (Prostate) HX Other Surgery: Yes (eye surgery, tonsils) Past Medical/Surgical History: Blood Dyscrasias (Gina Saalzar PA-C) Family History + HTN (Gina Salazar PA-C) Social History Smoking Status: Never Smoker Hx Tobacco Use In Past Year?: No Hx Alcohol Use - Type & Amnt: No Hx Substance Use -Type & Amnt: No (Gina Salazar, GENEVA) Review of Systems Constitutional: No chills, No fever, No malaise Skin: No change in color Eyes: No visual changes ENMT: No sore throat Respiratory: No cough, No CARRASCO, No hemoptysis, No short of breath Cardiovascular: No chest pain, No syncope, No edema, No intermittent claudication Gastrointestinal: No abdominal pain, No nausea, No vomiting Neurologic: No dizziness, No headache, No lethargy, No tingling (Gina Salazar, SHUNC) Physical Exam Constitutional: General Apperance: heathly-appearing, well-nourished, well-developed Level of Distress: NAD Ambulation: ambulating normally Psychiatric: Mental Status: active & alert, normal mood, normal affect Orientation: oriented except where noted, to time, to place, to person Memory: recent memory normal, remote memory normal Head: normocephalic, atraumatic Eyes: EOM: EOMI ENMT: normal ENT inspection, hearing grossly normal Neck: supple, trachea midline Lungs: Respiratory effort: no dyspnea Auscultation: no wheezing, no rales/crackles, no rhonchi Cardiovascular: Apical Impulse: not displaced Heart Auscultation: RRR, no rubs, no gallops Peripheral Pulses: Pulses: full and equal, in all extremities except if noted Bruits: none appreciated Carotid Pulse: normal on the left, normal on the right Brachial Pulses: normal on the left, normal on the right Radial Pulse: normal on the left, normal on the right Femoral Pulse: normal on the left, normal on the right Posterior Tibialis Pulse: decreased on the left, decreased on the right Dorsalis Pedis Pulse: decreased on the left, decreased on the right Abdomen: Bowel Sounds: normal Inspection & Palpation: soft, non-distended, no tenderness, guarding & rebound Musculoskeletal: normal strength (5/5 throughout), normal tone Extremities: Upper Right: no cyanosis, no edema, no varicosities Upper Left: no cyanosis, no edema, no varicosities Lower Right: no cyanosis, no edema, no palpable cord Lower Left: no cyanosis, no edema, no varicosities Neurologic: Cranial Nerves: grossly intact Sensation: grossly intact (Gina Salazar, SHUNC) Assessment and Plan ASSESSMENT and PLAN: Non hodgkins lymphoma Pt for infusaport insertion today by Dr Simoni. Procedure, risks, benefits, and alternatives discussed with pt and family. Pt expresses understanding and agreement (Gina Salazar, PA-C) Patient was seen, examined, and chart reviewed. Agree with exam and treatment plan of the Vascular PA. I have discussed the risks options and benefits of the procedure with the patient. The patient understands the risks options and benefits and agrees to the procedure. (Yehuda Jorge M.D.)
[2017-06-22] MEDS ORDERED: HYDROCORTISONE SOD SUCCINATE 100 MG/2 ML VIAL ONE (08:37)
[2017-06-22] MEDS ORDERED: HYDROCORTISONE IV 100 MG in SYRINGE 0 ML IV ONE (08:45)
--- NOTE | 2017-06-22 08:50 | Procedure Note ---
Pre-Mod Sedation Assessment General Date of Moderate Sedation: Jun 22, 2017. Vital Signs: Vital Signs Past 12 Hours Date Time Temp Pulse Resp B/P (MAP) Pulse Ox O2 Delivery O2 Flow Rate FiO2 06/22/17 07:27 36.6 98 20 140/70 97 Room Air 06/22/17 06:43 36.6 98 20 140/70 (93) 97 Room Air Pre-Sedation Airway Assessment Oral Cavity: Dentures Short Thick Neck: No Hx of Sleep Apnea: No Smoking Status: Never Smoker Mallampati Classification: Class I ASA Classification: Class II Notes The planned sedation has been discussed with the patient and consent obtained. I have identified the patient, determined the appropriateness of sedation and have assessed the patient immediately prior to the procedure. All medicine(s) and interventions are by my order.
[2017-06-22] MEDS ORDERED: MIDAZOLAM HCL 1 MG/ML 2ML VIAL IV ONE ×2 (09:10→09:14)
[2017-06-22] MEDS ORDERED: FENTANYL CITRATE INJ 50 MCG/1 ML 2 ML VIAL IV ONE (09:10)
[2017-06-22] MEDS ORDERED: BUPIVACAINE/EPINEPHRINE 0.5% MPF 1:200,000 30 ML VIAL INJ ONE (09:12)
[2017-06-22] MEDS ORDERED: LIDOCAINE HCL 1% 20 ML VIAL INJ ONE (09:12)
[2017-06-22] MEDS ORDERED: HYDROCORTISONE SOD SUCCINATE 100 MG/2 ML VIAL IV ONE (09:30)
--- NOTE | 2017-06-22 09:34 | [facility] Operative Report ---
Operative Report Operative Date Jun 22, 2017. Pre-Operative Diagnosis lymphoma Post-Operative Diagnosis same Procedure(s) Performed Insertion Of Infusaport, Right Internal Jugular Approach, Ultrasound Needle Localization Of Right Internal Jugular Vein, Fluoroscopy For Positioning, Moderate Concious Sedation [address] Jorge Loom Setter Surgeon(s) none Estimated Blood Loss 3 ml Findings tip in distal SVC. aspirates and flushes easily Specimens none Anesthesia Local with sedation Complication(s) None Disposition Indications This is an 86-year-old white male who has a diagnosis of lymphoma and is in need of an access for chemotherapy. Insertion of an infusaport was recommended. I have discussed the risks options and benefits of the procedure with the patient. The patient understands the risks options and benefits and agrees to the procedure. Description of Procedure Patient was takent to the angio suite and placed in the supine position. The right side of the neck and chest wall were prepped and draped in a sterile manner. Local anesthesia was then administered to the appropriate areas of the neck and chest wall. A transverse incision was made below the clavicle on the chest wall and an inferior pocket was make. Bleeding was controlled using cautery. Ultrasound was then used to locate the right internal jugular vein. The vein compressed easily, had no filing defects, and was patent. The vein was then punctured under direct ultrasound imaging. A guidewire was then passed centrally under fluoroscopic imaging. The port catheter was then passed from the pocket incision to the puncture site in the neck using the tunneling device. The peel away sheath was inserted. The catheter was then beveled at the tip and inserted through the peel away sheath. The tip was then positioned in the distal SCV. It was then attached to the port and the catheter clamp applied. The port was then placed in the pocket and sutured to the chest fascia using prolene suture. The puncture site was then closed using a 4-0 Vicryl subcuticular suture. The chest incision was closed using a 3-0 Vicryl suture for the subcutaneous layer and a 4-0 Vicryl subcuticular stitch for the skin layer. Dermabond was used for a dressing on the puncture site and the incision. The port aspirated and flushed easily and was then flushed with heparinized saline. The patient left the angio suite in good condition and tolerated the procedure well. I attest to the content of the Intraoperative Record and any orders documented therein. Any exceptions are noted below.
--- NOTE | 2017-06-22 09:35 | Procedure Note ---
Post-Moderate Sedation Plan General Date of Moderate Sedation Jun 22, 2017. Vital Signs: Vital Signs Past 12 Hours Date Time Temp Pulse Resp B/P (MAP) Pulse Ox O2 Delivery O2 Flow Rate FiO2 06/22/17 07:27 36.6 98 20 140/70 97 Room Air 06/22/17 06:43 36.6 98 20 140/70 (93) 97 Room Air Review - Discharge Plan Post Moderate Sedation Plan: On clinical assessment, the patient appears to have tolerated the conscious sedation without complications. Patient is recovering as anticipated. Patient will continue to be monitored by nursing and may be discharged when conscious sedation discharge criteria are met.
[2017-06-22] MEDS ORDERED: OXYC-57 PO (09:37)
--- NOTE | 2017-06-22 09:38 | Discharge Instructions ---
Discharge Instructions Date of Service Jun 22, 2017. Visit Reason for Visit: Non-Hodgkin's Lymphoma, Diffuse Large B-Cell Discharge Discharge Diagnosis / Problem: Lymphoma Discharge Goals Goal(s): Therapeutic intervention Activity Recommendations Activity Limitations: per Instructions/Follow-up section Anesthesia . Post Anesthesia Instructions: If you have had General Anesthesia or IV Sedation: * Do not drive today. * Resume driving when surgeon permits. * Do not make important decisions or sign legal documents today. * Call surgeon for: 1. Temperature elevations greater than 101 degrees F. 2. Uncontrollable pain. 3. Excessive bleeding. 4. Persistent nausea and vomiting. 5. Medication intolerance (nausea, vomiting or rash). * For nausea and vomiting use only clear liquids such as: tea, soda, bouillon until nausea subsides, then gradually increase diet as tolerated. * If you have any concerns or questions, call your surgeon's office. If physician is unavailable and it is an emergency, call 911 or go to the nearest emergency room. . Instructions / Follow-Up Instructions / Follow-Up Call [phone] to schedule a follow up appointment if one not already scheduled. ACTIVITY RECOMMENDATIONS: See Above SPECIAL CARE INSTRUCTIONS: Call your doctor if: * Temperature above 101 degrees * Pain not relieved by pain medicine ordered * There is increased drainage or redness from any incision * You have any unanswered questions or concerns. Diet Recommendations Recommended Home Diet: resume previous diet Procedures Procedures Performed: Insertion Of Infusaport, Right Internal Jugular Approach, Ultrasound Needle Localization Of Right Internal Jugular Vein, Fluoroscopy For Positioning, Moderate Concious Sedation 0910 to 0930 Pending Studies Studies pending at discharge: no Medical Emergencies . Who to Call and When: Medical Emergencies: If at any time you feel your situation is an emergency, please call 911 immediately. . Non-Emergent Contact Non-Emergency issues call your: Surgeon . . "Provider Documentation" section prepared by Yehuda Jorge. . [place] Drug Monitoring Program Search Results: no issues identified
[2017-06-22 09:45] VITALS: BP 119/54; PULSE 94; TEMP 37.1; O2SAT 95
[2017-06-22] MEDS ORDERED: OXYCODONE/ACETAMINOPHEN 5-325 TAB PO PRN (09:45)
[2017-06-22 10:15] VITALS: BP 90/54; PULSE 83; TEMP 36.8; O2SAT 95
== END 2017-06-22 10:30 | disposition home or self-care (01) ==
LOC: C.ACU 05:45
PROVIDERS: ATTEND Surgery Vascular Surgery
DX: C85.10 Unspecified B-cell lymphoma, unspecified site (principal); D64.9 Anemia, unspecified; R63.4 Abnormal weight loss; Z79.899 Other long term (current) drug therapy

== ENCOUNTER → 2017-07-04 | Outpatient (CLI) | payer BC ==
[~2017-07-04] MED LIST changes: +ACYC-57 PO; +OXYC-57 PO; +PRED-301 PO
--- NOTE | 2017-07-04 14:17 | ECHOCARDIOGRAM REPORT ---
*NOTICE TO RECEIVING [employer] This information is strictly Confidential and protected under [place] law. [place] law prohibits you from making any further disclosure of this information unless further disclosure is expressly permitted by the written consent of the person to whom it pertains or is authorized by law. A general authorization for the release of medical or other information is not sufficient for this purpose. Hospital accepts no responsibility if the information is made available to any other person, INCLUDING THE PATIENT. Interpretation Summary * Name: TATI BARRIENTOS Study Date: 07/04/2017 12:37 PM BP: 122/60 mmHg * Patient Location: [facility] HR: 97 * : 1930 (M/d/yyyy) Gender: Male Height: 69 in * Age: 86 yrs Ethnicity: [place] Weight: 132 lb * Ordering Physician: Frank Meraz * Referring Physician: Frank Meraz D.O. * Performed By: Etta Pereira RDCS * * Reason For Study: NONHODGKINS LYMPHOMA * BSA: 1.7 m2 * -- Conclusions -- * There is mild asymmetric left ventricular hypertrophy. * Left ventricular systolic function is normal. * Grade I diastolic dysfunction, (abnormal relaxation pattern). * The right ventricular systolic function is reduced as assessed by tricuspid annular plane systolic excursion (TAPSE) (TAPSE <1.6 cm). * There is a bioprosthetic aortic valve. * Right ventricular systolic pressure is elevated at 30-40mmHg. * Compared to study from October 2016, the septum now appears dyskinetic. Procedure Details * A complete two-dimensional transthoracic echocardiogram was performed (2D, M-mode, Doppler and color flow Doppler). Left Ventricle * The left ventricle is normal in size. * There is mild asymmetric left ventricular hypertrophy. * The basal septum is thickened and angulated consistent with sigmoid septum. * Ejection Fraction = 55-60%. * Left ventricular systolic function is normal. * Grade I diastolic dysfunction, (abnormal relaxation pattern). 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 * The right ventricular systolic function is reduced as assessed by tricuspid annular plane systolic excursion (TAPSE) (TAPSE <1.6 cm). Atria * The left atrial size is normal. * Right atrial size is normal. Mitral Valve * The mitral valve anatomy is normal. * Significant mitral regurgitation is absent. Tricuspid Valve * The tricuspid valve is not well visualized, but is grossly normal. * There is trace tricuspid regurgitation. * Right ventricular systolic pressure is elevated at 30-40mmHg. Aortic Valve * There is a bioprosthetic aortic valve. * The gradient is normal for this prosthetic aortic valve. * No regurgitation Pericardium/Pleural * There is no pericardial effusion. MMode 2D Measurements and Calculations IVSd 1.8 cm IVSs 2.0 cm LVIDd 4.1 cm LVIDs 2.8 cm LVPWd 1.2 cm LVPWs 1.7 cm IVS/LVPW 1.6 FS 31.0 % EDV(Teich) 72.3 ml ESV(Teich) 29.5 ml EF(Teich) 59.2 % EDV(cubed) 66.7 ml ESV(cubed) 21.9 ml EF(cubed) 67.2 % % IVS thick 10.9 % % LVPW thick 47.6 % LV mass(C)d 234.8 grams LV mass(C)dI 135.6 grams/m\S\2 LV mass(C)s 213.9 grams LV mass(C)sI 123.6 grams/m\S\2 SV(Teich) 42.8 ml SI(Teich) 24.7 ml/m\S\2 SV(cubed) 44.8 ml SI(cubed) 25.9 ml/m\S\2 LVOT diam 2.0 cm LVOT area 3.2 cm\S\2 LVAd ap4 25.5 cm\S\2 LVLd ap4 8.0 cm EDV(MOD-sp4) 70.4 ml EDV(sp4-el) 69.1 ml LVAs ap4 16.0 cm\S\2 LVLs ap4 7.2 cm ESV(MOD-sp4) 32.5 ml ESV(sp4-el) 30.0 ml EF(MOD-sp4) 53.8 % EF(sp4-el) 56.6 % LVAd ap2 28.6 cm\S\2 LVLd ap2 8.5 cm EDV(MOD-sp2) 81.0 ml EDV(sp2-el) 81.3 ml LVAs ap2 20.1 cm\S\2 LVLs ap2 8.4 cm ESV(MOD-sp2) 42.2 ml ESV(sp2-el) 40.7 ml EF(MOD-sp2) 47.9 % EF(sp2-el) 50.0 % LVLd %diff 6.0 % EDV(MOD-bp) 77.7 ml LVLs %diff 14.4 % ESV(MOD-bp) 39.9 ml EF(MOD-bp) 48.6 % SV(MOD-sp4) 37.8 ml SI(MOD-sp4) 21.9 ml/m\S\2 SV(MOD-sp2) 38.8 ml SI(MOD-sp2) 22.4 ml/m\S\2 SV(MOD-bp) 37.8 ml SI(MOD-bp) 21.8 ml/m\S\2 SV(sp4-el) 39.1 ml SI(sp4-el) 22.6 ml/m\S\2 SV(sp2-el) 40.7 ml SI(sp2-el) 23.5 ml/m\S\2 Doppler Measurements and Calculations MV E max mae 161.5 cm/sec MV dec time 0.21 sec Ao V2 max 226.0 cm/sec Ao max PG 20.4 mmHg Ao max PG (full) 16.3 mmHg Ao V2 mean 159.4 cm/sec Ao mean PG 11.4 mmHg Ao mean PG (full) 9.2 mmHg Ao V2 VTI 37.6 cm PINO(I,A) 1.7 cm\S\2 PINO(I,D) 1.7 cm\S\2 PINO(V,A) 1.4 cm\S\2 PINO(V,D) 1.4 cm\S\2 LV V1 max PG 4.1 mmHg LV V1 mean PG 2.2 mmHg LV V1 max 101.0 cm/sec LV V1 mean 70.4 cm/sec LV V1 VTI 20.2 cm SV(LVOT) 64.7 ml SI(LVOT) 37.4 ml/m\S\2 TR max mae 280.3 cm/sec
== END | disposition home or self-care (01) ==
LOC: C.CPL 12:28
PROVIDERS: ATTEND Internal Medicine Hematology & Oncology
DX: C88.0 Waldenstrom macroglobulinemia (principal)